=== PATIENT | female | born 1995 | race African-American/Black ===

== ENCOUNTER 2018-07-28 18:51 | Emergency (ER) | payer BC ==
[~2018-07-28] VITALS: Ht 176.5 cm; Wt 113.6 kg
[~2018-07-28 18:51] MED LIST: FERROUS SULFAT325 MG PO; FLAGYL500 MG PO; IBUPROFEN600 MG PO; K-DUR20 MEQ PO; PERCOCET 5-3251 TAB PO; PRENATAL COMPLE1 TAB PO; PROCARDIA XL PO; ZOFRAN4 MG PO
[2018-07-28 19:20] VITALS: Ht 176.5 cm; Wt 113.6 kg
[2018-07-28] MEDS ORDERED: [UNRECOGNIZED DRUG - REMARK] (19:23)
[2018-07-28 20:14] LABS: COLOR YELLOW (YELLOW)
[2018-07-28 20:15] LABS: APPEARANCE CLEAR (CLEAR); BILIRUBIN NEGATIVE (NEGATIVE); GLUCOSE NEGATIVE (NEGATIVE); KETONE NEGATIVE (NEGATIVE); NITRITE NEGATIVE (NEGATIVE); PROTEIN NEGATIVE (NEGATIVE); SPECIFIC GRAVITY 1.015 (1.005-1.020); UROBILINOGEN NORMAL (NORMAL)
[2018-07-28 20:20] LABS: BACTERIA MODERATE /hpf (NONE SEEN); EPITHELIAL CELLS 0-5 /hpf (0-5); RED CELLS - URINE OCC /hpf (0-5); WHITE CELLS - URINE 0-5 /hpf (0-5)
[2018-07-28 20:23] LABS: BASOPHILS 0.3 % (0-2); EOSINOPHILS 3.4 % (0-7); HEMATOCRIT 33.9 % (36.0-48.0); HEMOGLOBIN 10.9 g/dL (12-16); IMMATURE GRANULOCYTES 0.2 % (0-5); LYMPHOCYTES 33.3 % (15-50); MCH 22.3 pg (26.0-34.0); MCHC 32.2 g/dL (31.0-37.0); MCV 69.5 fL (80.0-100.0); NEUTROPHILS 53.8 % (40-80); PLATELET COUNT 193 10x3/uL (130-400); RBC 4.88 10x6/uL (4.00-5.40); RDW 14.4 % (11.5-14.5); WBC 6.5 10x3/uL (4.8-10.8)
[2018-07-28 20:39] LABS: ALBUMIN 3.4 g/dL (3.4-5.0); ALKALINE PHOSPHATASE 78 U/L (46-116); ALT (SGPT) 40 U/L (10-68); BILIRUBIN - TOTAL 0.19 mg/dL (0.2-1.3); CALC OSMOLALITY 269 mosm/kg (275-300); CARBON DIOXIDE 24.6 mmol/L (21.0-32.0); CHLORIDE - SERUM 103 mmol/L (98-107); CREATININE - SERUM 0.6 mg/dL (0.6-1.3); GLUCOSE 82 mg/dL (74-106); POTASSIUM - SERUM 3.6 mmol/L (3.5-5.1); PROTEIN - SERUM 7.1 g/dL (6.4-8.2); SODIUM 137 mmol/L (136-145); UREA NITROGEN 5 mg/dL (7-18); eGFR NON AFRICAN AMERICAN > 90 mL/min (90-120)
[2018-07-28 20:44] LABS: PLATELET ESTIMATE NORMAL
[2018-07-28 20:48] LABS: HCG URINE POSITIVE (NEGATIVE)
[2018-07-28 21:05] LABS: AMYLASE - SERUM 100 U/L (25-115); HCG - QUANTITATIVE (MATERNAL) 24241 mIU/mL; LIPASE 183 U/L (73-393)
[2018-07-28] MEDS ORDERED: DULCOLAX5 MG PO (21:27)
[2018-07-28 21:39] VITALS: BP 124/58
== END 2018-07-28 21:39 | disposition home or self-care (01) ==
LOC: D.ER 18:51
PROVIDERS: Family Medicine
DX: O26.892 Other specified pregnancy related conditions, second trimester (principal); Z3A.16 16 weeks gestation of pregnancy; K59.00 Constipation, unspecified; O23.42 Unspecified infection of urinary tract in pregnancy, second trimester

== ENCOUNTER 2018-08-22 21:03 | Emergency (ER) | payer BC, MEDICAID ==
[~2018-08-22] VITALS: Ht 176.5 cm; Wt 122.7 kg
[~2018-08-22 21:03] MED LIST changes: +DULCOLAX5 MG PO; +[UNRECOGNIZED DRUG - REMARK]
[2018-08-22 21:13] VITALS: Ht 176.5 cm; Wt 122.7 kg
[2018-08-22] MEDS ORDERED: AUGMENTIN 875-11 TAB PO (22:38)
[2018-08-22 23:14] VITALS: BP 110/74
== END 2018-08-22 23:15 | disposition home or self-care (01) ==
LOC: D.ER 21:03
DX: O26.892 Other specified pregnancy related conditions, second trimester (principal); Z3A.00 Weeks of gestation of pregnancy not specified; J06.9 Acute upper respiratory infection, unspecified; J02.9 Acute pharyngitis, unspecified